=== PATIENT | male | born 1960 | race Caucasian/White ===

== ENCOUNTER → 2021-01-05 | Outpatient (CLI) | payer MEDICARE, OTHER ==
[2021-01-05 13:10] LABS: HEMOGLOBIN 16.1 gm/dl (14.0-17.5); WHITE BLOOD COUNT 4.9 K/UL (4.5-11.0)
[2021-01-05 13:30] LABS: BUN/CREATININE RATIO 10 (0-10)
== END ==
LOC: LAB 12:30
PROVIDERS: Emergency Medicine
DX: R35.0 Frequency of micturition (principal); R53.83 Other fatigue
CPT/HCPCS: 36415; 80053; 85025

== ENCOUNTER 2021-12-05 20:27 | Emergency (ER) | payer MEDICARE, OTHER | END 2021-12-05 22:50 | disposition home or self-care (01) | LOC: ER1 20:27 | DX: U07.1 COVID-19 (principal) | CPT/HCPCS: 71045; 99283 ==